=== PATIENT | female | born 1940 | race Two or more races ===

== ENCOUNTER 2017-01-28 14:53 | Emergency (ER) | payer MEDICAID ==
[~2017-01-28] VITALS: Ht 152.4 cm; Wt 63.6 kg
[2017-01-28 15:01] VITALS: BP 116/72
== END 2017-01-28 17:09 | disposition home or self-care (01) ==
LOC: ED 17:03
DX: S05.12XA Contusion of eyeball and orbital tissues, left eye, initial encounter (principal); I10 Essential (primary) hypertension; W19.XXXA Unspecified fall, initial encounter; Y93.89 Activity, other specified; Y92.009 Unspecified place in unspecified non-institutional (private) residence as the place of occurrence of the external cause; Y99.8 Other external cause status
CPT/HCPCS: 70450; 70486; 99284